=== PATIENT | male | born 1950 | race Asian ===

== ENCOUNTER 2020-12-26 16:30 | Emergency (ER) | payer OTHER ==
[~2020-12-26] VITALS: Ht 177.8 cm; Wt 77.1 kg
[2020-12-26 17:49] LABS: PLATELET COUNT 151 K/uL (142-355)
[2020-12-26 17:57] LABS: POTASSIUM 4.1 mmol/L (3.6-5.2); SODIUM 147 mmol/L (136-145)
[2020-12-26 19:55] VITALS: BP 111/63; TEMP 98.7
== END 2020-12-26 19:55 | disposition home or self-care (01) ==
LOC: ED 16:30
PROVIDERS: Family Medicine
DX: R55 Syncope and collapse (principal); N39.0 Urinary tract infection, site not specified; Z03.818 Encounter for observation for suspected exposure to other biological agents ruled out; W07.XXXA Fall from chair, initial encounter; Y92.89 Other specified places as the place of occurrence of the external cause
CPT/HCPCS: 80053; 81000; 84484; 85027; 87077; 87086; 87088; 87186; 87635; 93005; 99283; U0003

== ENCOUNTER 2021-01-13 20:47 | Emergency (ER) | payer OTHER ==
[~2021-01-13] VITALS: Ht 177.8 cm; Wt 72.6 kg
[2021-01-13 23:14] VITALS: BP 101/63; TEMP 98.2
== END 2021-01-13 23:14 | disposition home or self-care (01) ==
LOC: ED 20:47
DX: I95.9 Hypotension, unspecified (principal); W01.0XXA Fall on same level from slipping, tripping and stumbling without subsequent striking against object, initial encounter; Y92.89 Other specified places as the place of occurrence of the external cause
CPT/HCPCS: 96360; 99284